=== PATIENT | female | born 1965 | race American Indian/Alaskan Native ===

== ENCOUNTER 2022-10-26 14:53 | Emergency (ER) | payer MEDICAID ==
[~2022-10-26] VITALS: Ht 165.1 cm; Wt 63.5 kg
--- OUTSIDE RECORDS SUMMARY | 2022-10-26 17:32 | XMS ---
PreManage Notification: YARELY CENTENO [employer] Events No recent Security Events currently on file CRITERIA MET - 6 ED Visits in 6 Months - [facility] - 2 Visits in 30 Days - [facility] - 3 Facilities in 90 Days CARE PROVIDERS JESS DOMINGUEZ Nurse Practitioner: Current PHONE: [phone] Sherif has no Care Guidelines for this patient. E.Leonie VISIT COUNT (12 MO.) 2 [facility] [address] [facility] 1 [facility]. TOTAL 10 NOTE: Visits indicate total known visits. ED/UCC VISIT TRACKING (12 MO.) 10/26/2022 14:53 ALCIRA Izaguirre TYPE: Emergency COMPLAINT: - ABDOMINAL PAIN 10/18/2022 18:06 [facility] TYPE: Emergency DIAGNOSES: - Right upper quadrant pain - Abdominal Pain [facility] DIAGNOSES: - Vomiting, unspecified - Diarrhea, unspecified - Post op complication - Generalized abdominal pain - Abdominal Pain 10[facility]06[facility]2022 14:04 [facility] [place] [facility] DIAGNOSES: - Noninfective gastroenteritis and colitis, unspecified - Other chronic pain - x3 abd pain - Abdominal Pain - Unspecified abdominal pain - Weakness - Nausea with vomiting, unspecified 10/02/2022 19:40 Saur[facility]h [facility] TYPE: Emergency DIAGNOSES: - Unspecified abdominal pain 09/29/2022 10:49 [facility] [place] [facility] TYPE: Emergency DIAGNOSES: - Unspecified abdominal pain - Vomiting, unspecified - Emesis - Abdominal Pain 09/19/2022 20:07 [facility] [place] [facility] TYPE: Emergency DIAGNOSES: - Peritonitis, unspecified - Other ascites - Abdominal Pain - Secondary esophageal varices without bleeding - Chest Pain - Spontaneous bacterial peritonitis - Alcoholic cirrhosis of liver without ascites - Unspecified abdominal pain - Unspecified cirrhosis of liver - Other esophagitis without bleeding - Anemia, unspecified 09/12/2022 17:01 [facility] DIAGNOSES: - Unspecified cirrhosis of liver - Emesis - Unspecified abdominal pain - x3 abd pain 09/01/2022 09:32 [facility]aur[facility] TYPE: Emergency DIAGNOSES: - Personal history of other diseases of the digestive system - Generalized abdominal pain 08/29/2022 23:42 [facility] [place] [facility] TYPE: Emergency DIAGNOSES: - Weakness - Hypokalemia - Weakness - Cough, unspecified - Unspecified cirrhosis of liver - Cough INPATIENT VISIT TRACKING (12 MO.) 09/19/2022 20:07 [facility] [place] [facility] TYPE: Nephrology DIAGNOSES: - Anemia, unspecified - Peritonitis, unspecified - Alcoholic cirrhosis of liver without ascites - Unspecified cirrhosis of liver - Alcoholic cirrhosis of liver with ascites - Unspecified abdominal pain - Secondary esophageal varices without bleeding - Other esophagitis without bleeding - Spontaneous bacterial peritonitis - Other ascites [email or web address]
== END 2022-10-26 18:43 | disposition home or self-care (01) ==
LOC: ED 14:53
DX: K74.60 Unspecified cirrhosis of liver (principal); Z20.822 Contact with and (suspected) exposure to COVID-19; Z88.8 Allergy status to other drugs, medicaments and biological substances; Z88.0 Allergy status to penicillin
CPT/HCPCS: 36415; 71045; 80053; 81003; 83690; 85025; 87502; 96361; 96374; 96375; 99284-25; A9270; C9803; J1170; J1200; J2405; J7030; U0003